=== PATIENT | male | born 1935 | race Caucasian/White ===

== ENCOUNTER 2019-03-22 10:44 | Inpatient (IN) | payer MEDICARE ==
[~2019-03-22] VITALS: Ht 172.7 cm; Wt 118.8 kg
[2019-03-22 11:42] LABS: BASOPHILS % (AUTO) 0.4 % (0.0-5.0); EOSINOPHILS % (AUTO) 1.7 % (0.0-8.0); HEMATOCRIT 49.5 % (42-54); LYMPHOCYTES % (AUTO) 18.8 % (21.0-51.0); MEAN CORPUSCULAR HEMOGLOBIN 30.5 pg (27.0-33.0); MEAN CORPUSCULAR HGB CONC 34.6 g/dL (32.0-36.0); MEAN CORPUSCULAR VOLUME 88.2 fL (79-99); MONOCYTES % (AUTO) 8.6 % (3.0-13.0); NEUTROPHILS % (AUTO) 70.5 % (40.0-77.0); NUCLEATED RED BLOOD CELLS 0.1 % (0.0-0.19); PLATELET COUNT (AUTO) 270 K/uL (130-400); RED BLOOD CELL COUNT(AUTO) 5.62 MIL/uL (4.50-6.20); RED CELL DISTRIBUTION WIDTH 13.3 % (11.0-15.5); WHITE BLOOD COUNT (AUTO) 12.1 K/uL (4.8-10.8)
[2019-03-22 11:52] LABS: CREATININE 1.1 mg/dL (0.5-1.5); POTASSIUM 3.7 mmol/L (3.5-5.1)
[2019-03-22 11:57] LABS: ALBUMIN 3.5 g/dL (3.5-5.0); BILIRUBIN,TOTAL 0.8 mg/dL (0.2-1.0); CRP QUANTITATIVE 22.8 mg/L (0.00-9.0); INR 1.02 (0.85-1.15); PARTIAL THROMBOPLASTIN TIME 30.3 SEC (26.3-35.5); PROTHROMBIN TIME 10.7 SEC (9.6-11.6); TOTAL PROTEIN, SERUM 7.7 g/dL (6.0-8.3)
[2019-03-22 12:11] LABS: B-TYPE NATRIURETIC PEPTIDE 37 pg/mL (0-100)
[2019-03-22] MEDS ORDERED: MORPHINE SULFATE 4 MG/1ML SYG IV PRN (14:15)
[2019-03-22] MEDS ORDERED: LACTULOSE 20 GM/30 ML UDCUP PO PRN (14:15)
[2019-03-22] MEDS ORDERED: ONDANSETRON HCL 4 MG/2 ML VIAL IV PRN (14:15)
[2019-03-22] MEDS ORDERED: HYDRALAZINE HCL 20 MG/ML VIAL IV PRN (14:15)
[2019-03-22] MEDS ORDERED: MORPHINE SULFATE 2 MG/ML 1ML SYG IV PRN (14:15)
[2019-03-22] MEDS ORDERED: ACETAMINOPHEN 325 MG TAB PO PRN ×2 (14:15)
[2019-03-22 14:16] LABS: APPEARANCE,URINE Clear (CLEAR); BILIRUBIN,URINE Negative (NEGATIVE); COLOR,URINE Dark Yellow (YELLOW); GLUCOSE, URINE (UA) >=1000 mg/dL (NEGATIVE); KETONES,URINE Negative (NEGATIVE); LEUKOCYTE ESTERASE ,URINE Moderate (NEGATIVE); NITRATE,URINE Positive (NEGATIVE); OCCULT BLOOD,URINE Trace (NEGATIVE); PROTEIN,URINE Negative (NEGATIVE)
[2019-03-22 14:28] LABS: BACTERIA,URINE Many /HPF (None Seen); MUCUS,URINE Few LPF (None Seen); RBC,URINE 0-1 /HPF (0-1); SQUAMOUS EPITHELIAL CELL,UR Rare /HPF (0-2); WBC,URINE >100 /HPF (0-1)
[2019-03-22 20:54] LABS: CREATINE KINASE, TOTAL 29 U/L (21-232); MYOGLOBIN 2 ng/mL (10-92)
[2019-03-22] MEDS ORDERED: DEXAMETHASONE SOD PHOSPHATE 4 MG/ML 1ML VIAL ONE (22:42)
[2019-03-22] MEDS ORDERED: ZOSYN 3.375GM+NS 50ML 50 ML IV ONE (22:43)
[2019-03-22] MEDS ORDERED: BACLOFEN 10 MG TABLET PO ONE (22:43)
[2019-03-22] MEDS ORDERED: PREGABALIN 25 MG CAP ONE (22:44)
[2019-03-22] MEDS ORDERED: FAMOTIDINE/PF 20 MG/2 ML VIAL IV ONE (22:44)
[2019-03-23] MEDS: INSULIN HUMULIN R 100 UNIT/ML 3ML SQ SCH ×4 (07:30→21:18)
[2019-03-23] MEDS ORDERED: ZOSYN 3.375GM+NS 50ML 50 ML IV ONE (07:58)
[2019-03-23] MEDS ORDERED: DEXAMETHASONE SOD PHOSPHATE 4 MG/ML 1ML VIAL ONE (08:04)
[2019-03-23] MEDS ORDERED: BACLOFEN 10 MG TABLET PO ONE (08:05)
[2019-03-23] MEDS ORDERED: PREGABALIN 25 MG CAP ONE (08:06)
[2019-03-23] MEDS ORDERED: FAMOTIDINE/PF 20 MG/2 ML VIAL IV ONE (08:06)
[2019-03-23] MEDS ORDERED: INSULIN HUMULIN R 100 UNIT/ML 3ML ONE (08:42)
[2019-03-23] MEDS ORDERED: LIDOCAINE 5% TOPICAL PATCH TP SCH (09:00)
[2019-03-23] MEDS: FAMOTIDINE/PF 20 MG/2 ML VIAL IV SCH ×2 (09:00→21:12)
[2019-03-23] MEDS: PREGABALIN 75 MG CAPSULE PO SCH ×2 (09:00→13:15)
[2019-03-23] MEDS: BACLOFEN 10 MG TABLET PO SCH ×3 (09:00→21:12)
[2019-03-23] MEDS: DEXAMETHASONE SOD PHOSPHATE 4 MG/ML 1ML VIAL IVP SCH ×3 (09:00→21:12)
[2019-03-23] MEDS: ZOSYN 3.375GM+NS 50ML 50 ML IV SCH ×2 (10:30→17:02)
[2019-03-23] MEDS ORDERED: IOHEXOL-350 50ML VIAL IV ONE (10:54)
--- NOTE | 2019-03-23 10:54 | NUR ---
MICHELLE Tyler met with pt and daughter. Pt liveswith [place] [phone]. Pt states he is independent of ADLS, uses walker, home is handicapped equipped, toilets and grab bars, no in home care services. Denies dc needs plan is home Addendum: 03/23/19 at 1056 by REMBERTO GEORGE SS Amended: Links added.
[2019-03-23 11:56] VITALS: BP 149/69
[2019-03-23 11:56] LABS: BASOPHILS % (AUTO) 0.5 % (0.0-5.0); HEMATOCRIT 49.1 % (42-54); LYMPHOCYTES % (AUTO) 11.2 % (21.0-51.0); MEAN CORPUSCULAR HEMOGLOBIN 30.5 pg (27.0-33.0); MEAN CORPUSCULAR HGB CONC 34.9 g/dL (32.0-36.0); MEAN CORPUSCULAR VOLUME 87.3 fL (79-99); MONOCYTES % (AUTO) 2.1 % (3.0-13.0); NEUTROPHILS % (AUTO) 86.2 % (40.0-77.0); PLATELET COUNT (AUTO) 264 K/uL (130-400); RED BLOOD CELL COUNT(AUTO) 5.63 MIL/uL (4.50-6.20); RED CELL DISTRIBUTION WIDTH 12.9 % (11.0-15.5); WHITE BLOOD COUNT (AUTO) 9.5 K/uL (4.8-10.8)
[2019-03-23 12:08] LABS: POTASSIUM 3.9 mmol/L (3.5-5.1)
[2019-03-23] MEDS ORDERED: ATEN50TA PO (12:19)
[2019-03-23] MEDS ORDERED: HYDR12.54 PO (12:19)
[2019-03-23] MEDS ORDERED: METF-444 PO (12:19)
[2019-03-23] MEDS ORDERED: RANI150T7 PO (12:19)
[2019-03-23 16:14] VITALS: BP 158/78
[2019-03-23 19:16] VITALS: BP 158/80
[2019-03-23] MEDS ORDERED: PREGABALIN 25 MG CAP PO SCH (21:00)
--- NOTE | 2019-03-23 22:20 | NUR ---
NOTE SQL SERVER DEVELOPER CONTACTED ME REGARDING HER OBSERVING PATIENT CLOSING THE DOOR IN HIS ROOM (IT HAD BEEN OPEN SLIGHTLY) SHE WENT IN TO CHECK ON HIM, BUT HE WAS PUSHING DOOR TO STAY CLOSED AND WOULD NOT OPEN DOOR. WE BOTH CONTINUED TO TRY TO SPEAK WITH HIM. HE OPENED THE DOOR SLIGHTLY ABOUT 3 TIMES BUT WOULD SHUT IT. HE DID NOT RESPOND TO ANY QUESTIONS ASKED REGARDING HIM NEEDING HELP. WE COULD HEAR THAT HE IS WALKING AROUND IN ROOM, NOISE OF KEYS BEING HANDLED, AND NOTICED HE HAD TAKEN HIS GOWN ON THE OCCASIONS HE OPENED DOOR TO LOOK OUT. CONTACTED ETCHER APPRENTICE SARAH PARHAM RN TO INFORMED OF SITUATION ABOVE AND THAT HIS MENTAL STATE AND BEHAVIOR WAS NOT THIS LAST TIME CHECKED ON ABOUT AN HOUR PRIOR. ADVISED TO CONTACT SECURITY AND I DID AND INFORMED OF ABOVE INFORMATION WELL.
--- NOTE | 2019-03-23 22:35 | NUR ---
NOTE SPOKE WITH Javier ESQUIVELP (ONCALL FOR HOSPITALIST) GAVE BRIEF REPORT OF PATIENT AND PRESENT SITUATION. NO ORDERS OTHER THAN TO WORK WITH SECURITY TO GET HIM TO OPEN DOOR.
--- NOTE | 2019-03-23 22:43 | NUR ---
NOTE SECUTITY OFFICERS KEPT TRYING TO TALK TO PATIENT TO OPEN DOOR, I CONTACTED PATIENT'S SPOUSE WITH NUMBER LISTED ON CHART. SHE SAYS SHE IS NOT ABLE TO COME SHE DOES NOT HAVE A VEHICLE, BUT WILL CALL HER DAUGHTER TO COME. SHARED THIS INFORMATION WITH SECURITY GUARDS WHO BY NOW HAVE MANAGED TO GET DOOR OPEN AND PATIENT WAS SAYING HE IS AT A HOTEL AND HAS PAID FOR HIS ROOM AND TO NOT BE BOTHERED BY US.
--- NOTE | 2019-03-23 22:48 | NUR ---
NOTE CONTACTED AGAIN Javier LUNDBERG MEDICAL RECORD LIBRARIANS TEACHER TO NOTIFY OF WHAT PATIENT IS SAYING. HE APEARS TO KNOW WHO HE IS AND THAT [facility], BUT DOES NOT ACCEPT WHEN TOLD THAT HE IS IN HOSPITAL. RECEIVED ORDERS TO ADMINISTER ATIVAN 1MG IV IF NEEDED TO HELP CONTROL PATIENT'S AGITATION. PATIENT MEAN WHILE, GOT DRESSED AND GOT HIS BELONGINGS AND SAYS HE IS LEAVING AND STARTED WALKING TOWARDS ELEVATORS WITH SECURITY OFFICERS FOLLOWING HIM.
--- NOTE | 2019-03-23 23:13 | NUR ---
NOTE LISW IS AWARE OF SITUATION. Javier LUNDBERG AD SETTER ALSO INFORMED PATIENT WALKED OUT. CHECKED ROOM AND FOUND THE MAGAÑA CATHETER CUT IN TWO PIECES. THE TIP AND THE REST ATTACKED TO THE DRAINAGE BAG. ALSO FOUND IV CATHETER THAT PATIENT REMOVED AND WAS FOUND ON THE BED LINEN. IN CONFERING WITH ALEXANDER (ONE OF THE SECURITY GUARDS) SHE SAYS SHE CONTACTED THE POLICE DEPARTMENT TO GO CHECK ON HIM AT HOME HE DID GET INTO THIS VEHICLE AND DROVE AWAY. SHE SAYS HE SPOKE WITH DAUGHTER WHEN SHE ARRIVED AND INFORMED HER SHE HAD JUST LEFT. WITNESSED THAT SHE ALSO RECEIVED A PHONE CALL WHERE SHE SPOKE WITH A PERSON THAT IDENTIFIED A FAMILY MEMBER OF PATIENT AND TOLD HER HE ARRIVED AT HOME. SHE NOTIFIED THAT PERSON THAT SHE ASKED THE POLICE DEPARTMENT TO CHECK IN ON HIM AT HIS ADDRESS TO MAKE SURE HE GOT THERE SAFE.
== END 2019-03-23 22:55 | disposition left against medical advice (07) | DRG 690 ==
LOC: EDH 10:44 → EDHIP 14:11 → 4AH 14:12
PROVIDERS: ADMIT Internal Medicine; ATTEND Internal Medicine
DX: N39.0 Urinary tract infection, site not specified (principal); M48.061 Spinal stenosis, lumbar region without neurogenic claudication; E11.42 Type 2 diabetes mellitus with diabetic polyneuropathy; G89.29 Other chronic pain; I10 Essential (primary) hypertension; M47.816 Spondylosis without myelopathy or radiculopathy, lumbar region; Z53.21 Procedure and treatment not carried out due to patient leaving prior to being seen by health care provider; E83.52 Hypercalcemia; Z87.440 Personal history of urinary (tract) infections; Z87.891 Personal history of nicotine dependence
CPT/HCPCS: 36415; 70470; 71045; 72131; 72141; 72146; 72148; 80048; 80053; 81001; 82550; 82948; 83874; 83880; 84484; 85025; 85610; 85651; 85730; 86140; 93005; 93925; 93970; G0378; J1100; J1815; J2543; J3490; Q9967

== ENCOUNTER 2019-03-24 15:23 | Emergency (ER) | payer MEDICARE ==
[~2019-03-24 15:23] MED LIST: ATEN50TA PO; HYDR12.54 PO; METF-444 PO; RANI150T7 PO
[2019-03-24 16:05] LABS: EOSINOPHILS % (AUTO) 0.1 % (0.0-8.0); HEMATOCRIT 47.2 % (42-54); MEAN CORPUSCULAR HEMOGLOBIN 30.2 pg (27.0-33.0); MEAN CORPUSCULAR HGB CONC 34.1 g/dL (32.0-36.0); MEAN CORPUSCULAR VOLUME 88.7 fL (79-99); MONOCYTES % (AUTO) 8.1 % (3.0-13.0); NEUTROPHILS % (AUTO) 76.8 % (40.0-77.0); PLATELET COUNT (AUTO) 277 K/uL (130-400); RED BLOOD CELL COUNT(AUTO) 5.32 MIL/uL (4.50-6.20); RED CELL DISTRIBUTION WIDTH 13.5 % (11.0-15.5); WHITE BLOOD COUNT (AUTO) 16.1 K/uL (4.8-10.8)
[2019-03-24 16:20] LABS: CREATININE 1.1 mg/dL (0.5-1.5); POTASSIUM 3.4 mmol/L (3.5-5.1)
[2019-03-24 17:00] LABS: APPEARANCE,URINE SL CLOUDY (CLEAR); BILIRUBIN,URINE NEGATIVE (NEGATIVE); COLOR,URINE YELLOW (YELLOW); GLUCOSE, URINE (UA) >=1000 mg/dL (NEGATIVE); KETONES,URINE NEGATIVE (NEGATIVE); LEUKOCYTE ESTERASE ,URINE SMALL (NEGATIVE); NITRATE,URINE NEGATIVE (NEGATIVE); OCCULT BLOOD,URINE MODERATE (NEGATIVE); PROTEIN,URINE TRACE mg/dL (NEGATIVE); UROBILINOGEN,URINE 0.2 mg/dL (0.2-1.0)
[2019-03-24 17:09] LABS: BACTERIA,URINE Few /HPF (None Seen)
[2019-03-24 17:10] LABS: MUCUS,URINE Rare LPF (None Seen); SQUAMOUS EPITHELIAL CELL,UR Few /HPF (0-2)
[2019-03-24] MEDS ORDERED: CEFTRIAXONE SODIUM 1 GM ONE (17:23)
== END 2019-03-24 17:58 | disposition home or self-care (01) ==
LOC: EDH 15:23
DX: N39.0 Urinary tract infection, site not specified (principal); E11.65 Type 2 diabetes mellitus with hyperglycemia; I10 Essential (primary) hypertension; Z98.890 Other specified postprocedural states
CPT/HCPCS: 36415; 71045; 80048; 81001; 82948; 85025; 87088; 87804 ×2; 96374; 99285; J0696

== ENCOUNTER 2019-08-20 18:55 | Emergency (ER) | payer MEDICARE ==
[2019-08-20 20:05] LABS: BASOPHILS % (AUTO) 2.4 % (0.0-5.0); EOSINOPHILS % (AUTO) 4.4 % (0.0-8.0); HEMATOCRIT 42.6 % (42-54); LYMPHOCYTES % (AUTO) 25.8 % (21.0-51.0); MEAN CORPUSCULAR HEMOGLOBIN 30.2 pg (27.0-33.0); MEAN CORPUSCULAR HGB CONC 34.6 g/dL (32.0-36.0); MEAN CORPUSCULAR VOLUME 87.1 fL (79-99); MONOCYTES % (AUTO) 8.7 % (3.0-13.0); NEUTROPHILS % (AUTO) 58.7 % (40.0-77.0); PLATELET COUNT (AUTO) 311 K/uL (130-400); RED BLOOD CELL COUNT(AUTO) 4.89 MIL/uL (4.50-6.20); RED CELL DISTRIBUTION WIDTH 13.3 % (11.0-15.5); WHITE BLOOD COUNT (AUTO) 10.5 K/uL (4.8-10.8)
[2019-08-20 20:14] LABS: APPEARANCE,URINE TURBID (CLEAR); BILIRUBIN,URINE LARGE (NEGATIVE); COLOR,URINE BROWN (YELLOW); GLUCOSE, URINE (UA) NEGATIVE (NEGATIVE); KETONES,URINE 15 mg/dL (NEGATIVE); LEUKOCYTE ESTERASE ,URINE MODERATE (NEGATIVE); NITRATE,URINE POSITIVE (NEGATIVE); OCCULT BLOOD,URINE LARGE (NEGATIVE); PROTEIN,URINE >=300 mg/dL (NEGATIVE); UROBILINOGEN,URINE >=8.0 mg/dL (0.2-1.0)
[2019-08-20 20:22] LABS: BACTERIA,URINE Many /HPF (None Seen); RBC,URINE 51-100 /HPF (0-1); SQUAMOUS EPITHELIAL CELL,UR 0-2 /HPF (0-2)
[2019-08-20 20:23] LABS: MUCUS,URINE None Seen LPF (None Seen)
[2019-08-20 20:24] LABS: POTASSIUM 3.5 mmol/L (3.5-5.1)
[2019-08-20 20:25] LABS: INR 1.01 (0.85-1.15); PARTIAL THROMBOPLASTIN TIME 29.1 SEC (26.3-35.5); PROTHROMBIN TIME 10.6 SEC (9.6-11.6)
[2019-08-20 20:26] LABS: ALBUMIN 3.3 g/dL (3.5-5.0); BILIRUBIN,TOTAL 0.3 mg/dL (0.2-1.0); TOTAL PROTEIN, SERUM 7.5 g/dL (6.0-8.3)
[2019-08-20] MEDS ORDERED: CEFTRIAXONE SODIUM 1 GM ONE (20:38)
== END 2019-08-20 21:25 | disposition home or self-care (01) ==
LOC: EDH 18:55
DX: N39.0 Urinary tract infection, site not specified (principal); R31.9 Hematuria, unspecified; I10 Essential (primary) hypertension; E11.9 Type 2 diabetes mellitus without complications; Z87.891 Personal history of nicotine dependence
CPT/HCPCS: 36415; 80053; 81001; 85025; 85610; 85730; 87077; 87088; 87186; 96374; 99284; J0696

== ENCOUNTER → 2019-09-06 | Outpatient (CLI) | payer MEDICARE ==
[~2019-09-06] VITALS: Ht 174 cm; Wt 104.8 kg
[~2019-09-06] MED LIST changes: +ASPI-1181 PO; +CEFTRIAXONE SODIUM 1 GM IVP SCH; +CEPH500C2 PO; +GENTAMICIN SULFATE 360 MG in SODIUM CHLORIDE 0.9% 100 ML IV SCH; +TAMS-1 PO; +TYLENOL PO
[2019-09-06 12:09] LABS: BASOPHILS % (AUTO) 0.9 % (0.0-5.0); EOSINOPHILS % (AUTO) 1.6 % (0.0-8.0); HEMATOCRIT 45.3 % (42-54); LYMPHOCYTES % (AUTO) 18.3 % (21.0-51.0); MEAN CORPUSCULAR HEMOGLOBIN 28.7 pg (27.0-33.0); MEAN CORPUSCULAR HGB CONC 33.3 g/dL (32.0-36.0); MEAN CORPUSCULAR VOLUME 86.4 fL (79-99); NEUTROPHILS % (AUTO) 71.2 % (40.0-77.0); PLATELET COUNT (AUTO) 508 K/uL (130-400); RED BLOOD CELL COUNT(AUTO) 5.24 MIL/uL (4.50-6.20); RED CELL DISTRIBUTION WIDTH 13.3 % (11.0-15.5); WHITE BLOOD COUNT (AUTO) 13.3 K/uL (4.8-10.8)
[2019-09-06 12:28] LABS: CREATININE 0.9 mg/dL (0.5-1.5); POTASSIUM 4.2 mmol/L (3.5-5.1)
[2019-09-06 12:37] LABS: APPEARANCE,URINE Turbid (CLEAR); BILIRUBIN,URINE Negative (NEGATIVE); COLOR,URINE Yellow (YELLOW); GLUCOSE, URINE (UA) Negative (NEGATIVE); KETONES,URINE Negative (NEGATIVE); LEUKOCYTE ESTERASE ,URINE Moderate (NEGATIVE); NITRATE,URINE Positive (NEGATIVE); OCCULT BLOOD,URINE Large (NEGATIVE); PH,URINE >=9.0 (5.0-8.0); PROTEIN,URINE POS 1+ mg/dL (NEGATIVE)
--- NOTE | 2019-09-06 12:39 | NUR ---
ABNORMAL EKG ABNORMAL EKG REPORTED TO DR. COSTA. NO FURTHER ORDERS GIVEN, MAY PROCEED WITH PLANNED PROCEDURE.
[2019-09-06 12:51] LABS: INR 1.04 (0.85-1.15); PARTIAL THROMBOPLASTIN TIME 30.8 SEC (26.3-35.5); PROTHROMBIN TIME 10.9 SEC (9.6-11.6)
[2019-09-06 13:01] LABS: AMORPHOUS SEDIMENT,UR Moderate /LPF (None Seen); BACTERIA,URINE Many /HPF (None Seen); RBC,URINE TNTC /HPF (0-1); SQUAMOUS EPITHELIAL CELL,UR Rare /HPF (0-2); WBC,URINE 26-50 /HPF (0-1)
--- NOTE | 2019-09-08 14:57 | NUR ---
Faxed over labs to Doctor Fingers office spoke to Shasha from office, send over ua results and ua xc, and faxed over cbc, Pending call back and new orders.
--- NOTE | 2019-09-08 16:08 | NUR ---
LABS PER DR FERNANDO CANCEL SURGERY DUE TO ABNORMAL URINE AND WBC ELEVATED, PREET OR OLIVE PACKER AWARE
== END ==
LOC: DAH 10:00 → EDSTATUS 10-04 10:00
PROVIDERS: ATTEND Urology
DX: Z01.818 Encounter for other preprocedural examination (principal); N40.1 Benign prostatic hyperplasia with lower urinary tract symptoms; R33.8 Other retention of urine; Z79.899 Other long term (current) drug therapy; Z79.01 Long term (current) use of anticoagulants; Z79.84 Long term (current) use of oral hypoglycemic drugs; Z87.891 Personal history of nicotine dependence; Z82.49 Family history of ischemic heart disease and other diseases of the circulatory system; Z82.5 Family history of asthma and other chronic lower respiratory diseases
CPT/HCPCS: 36415; 71045; 80048; 81001; 85025; 85610; 85730; 87077; 87088; 87186; 93005; A6260

== ENCOUNTER 2019-10-07 07:00 | Day surgery (SDC) | payer MEDICARE ==
[2019-10-04 10:35] LABS: BASOPHILS % (AUTO) 0.4 % (0.0-5.0); EOSINOPHILS % (AUTO) 1.3 % (0.0-8.0); HEMATOCRIT 43.6 % (42-54); LYMPHOCYTES % (AUTO) 11.3 % (21.0-51.0); MEAN CORPUSCULAR HEMOGLOBIN 29.5 pg (27.0-33.0); MEAN CORPUSCULAR HGB CONC 33.8 g/dL (32.0-36.0); MEAN CORPUSCULAR VOLUME 87.3 fL (79-99); MONOCYTES % (AUTO) 2.7 % (3.0-13.0); NEUTROPHILS % (AUTO) 84.3 % (40.0-77.0); PLATELET COUNT (AUTO) 311 K/uL (130-400); RED BLOOD CELL COUNT(AUTO) 4.99 MIL/uL (4.50-6.20); WHITE BLOOD COUNT (AUTO) 13.6 K/uL (4.8-10.8)
[2019-10-04 11:08] VITALS: BP 146/59
[2019-10-04 12:34] LABS: APPEARANCE,URINE Cloudy (CLEAR); BILIRUBIN,URINE Negative (NEGATIVE); COLOR,URINE Yellow (YELLOW); GLUCOSE, URINE (UA) 250 mg/dL (NEGATIVE); KETONES,URINE Negative (NEGATIVE); LEUKOCYTE ESTERASE ,URINE Large (NEGATIVE); NITRATE,URINE Negative (NEGATIVE); OCCULT BLOOD,URINE Moderate (NEGATIVE); PROTEIN,URINE Negative (NEGATIVE); UROBILINOGEN,URINE 0.2 mg/dL (0.2-1.0)
[2019-10-04 12:36] LABS: BACTERIA,URINE Few /HPF (None Seen); RBC,URINE 0-1 /HPF (0-1)
[2019-10-04 12:37] LABS: SQUAMOUS EPITHELIAL CELL,UR Few /HPF (0-2)
--- NOTE | 2019-10-06 18:30 | NUR ---
REPORTED ABNORMAL UA LABS TO DR. FERNANDO, NO NEW ORDERS, OK TO PROCEED.
[2019-10-07] VITALS (17 sets, daily range): BP systolic 104–135; BP diastolic 51–63
[~2019-10-07] VITALS: Ht 172.7 cm; Wt 104.6 kg
[~2019-10-07 07:00] MED LIST changes: -ASPI-1181 PO; -CEFTRIAXONE SODIUM 1 GM IVP SCH; -CEPH500C2 PO; +FURO20TA4 PO; +GENTAMICIN SULFATE 320 MG in SODIUM CHLORIDE 0.9% 100 ML IV SCH; -GENTAMICIN SULFATE 360 MG in SODIUM CHLORIDE 0.9% 100 ML IV SCH; +METH2.5T6 PO; +METH4TAB15 PO; +POTA20PI IV; -RANI150T7 PO
[2019-10-07] MEDS ORDERED: SODIUM CHLORIDE 0.9% 1000ML 1,000 ML IV ONE (08:44)
[2019-10-07] MEDS: ZOSYN 3.375GM+NS 50ML 50 ML IV SCH ×2 (09:00→10:15)
[2019-10-07] MEDS ORDERED: FENTANYL CITRATE PF 50 MCG/1 ML 2ML VIAL ONE (09:56)
[2019-10-07] MEDS ORDERED: PROPOFOL 10 MG/ML 20ML VIAL IV ONE (09:56)
[2019-10-07] MEDS ORDERED: LIDOCAINE PF 2% 5ML ABBOJECT ONE (09:56)
[2019-10-07] MEDS ORDERED: ROCURONIUM 10MG/1ML SYR 10 MG/ML ML ONE (09:56)
[2019-10-07] MEDS ORDERED: SUCCINYLCHOLINE 200MG/10ML SYR ONE (09:56)
[2019-10-07] MEDS ORDERED: EPHEDRINE SULFATE 50 MG/ML AMPULE ONE (10:21)
[2019-10-07] MEDS ORDERED: GLYCOPYRROLATE 1 MG/5 ML SYRINGE ONE (11:22)
[2019-10-07] MEDS ORDERED: NEOSTIGMINE 5MG/5ML SYR IV ONE (11:22)
== END 2019-10-07 13:33 | disposition home or self-care (01) ==
LOC: DAH 07:00
PROVIDERS: ATTEND Urology
DX: N40.1 Benign prostatic hyperplasia with lower urinary tract symptoms (principal); R33.8 Other retention of urine; E11.9 Type 2 diabetes mellitus without complications; I10 Essential (primary) hypertension; Z98.890 Other specified postprocedural states; M19.90 Unspecified osteoarthritis, unspecified site; Z98.41 Cataract extraction status, right eye; Z98.42 Cataract extraction status, left eye; Z79.84 Long term (current) use of oral hypoglycemic drugs; Z79.899 Other long term (current) drug therapy; Z82.49 Family history of ischemic heart disease and other diseases of the circulatory system; Z82.5 Family history of asthma and other chronic lower respiratory diseases; Z82.3 Family history of stroke
CPT/HCPCS: 36415; 52601; 55700; 76942; 76998; 80048; 81001; 82948 ×2; 85025; 87077; 87088; 87186; 88305; 96365; A4215 ×2; A4221; A4222; A4223 ×2; A4354; A4358; A4663; A6260; C1758; J0330; J1580; J2001; J2543; J2704; J2710; J3010; J3490 ×2; J7030; J7120

== ENCOUNTER 2019-10-12 05:18 | Emergency (ER) | payer MEDICARE ==
[~2019-10-12 05:18] MED LIST changes: -GENTAMICIN SULFATE 320 MG in SODIUM CHLORIDE 0.9% 100 ML IV SCH
[2019-10-12 06:06] LABS: APPEARANCE,URINE Turbid (CLEAR); BILIRUBIN,URINE Negative (NEGATIVE); COLOR,URINE Yellow (YELLOW); GLUCOSE, URINE (UA) 250 mg/dL (NEGATIVE); KETONES,URINE Negative (NEGATIVE); LEUKOCYTE ESTERASE ,URINE Large (NEGATIVE); NITRATE,URINE Negative (NEGATIVE); OCCULT BLOOD,URINE Large (NEGATIVE); PROTEIN,URINE POS 1+ mg/dL (NEGATIVE); UROBILINOGEN,URINE 0.2 mg/dL (0.2-1.0)
[2019-10-12 06:26] LABS: CREATININE 0.7 mg/dL (0.5-1.5); POTASSIUM 3.5 mmol/L (3.5-5.1)
[2019-10-12 07:11] LABS: RBC,URINE 51-100 /HPF (0-1)
[2019-10-12 07:12] LABS: BACTERIA,URINE Rare /HPF (None Seen); SQUAMOUS EPITHELIAL CELL,UR Rare /HPF (0-2); YEAST,URINE BUDDING Many /HPF (None Seen)
[2019-10-12 07:18] LABS: BASOPHILS % (AUTO) 0.6 % (0.0-5.0); EOSINOPHILS % (AUTO) 2.7 % (0.0-8.0); HEMATOCRIT 43.6 % (42-54); LYMPHOCYTES % (AUTO) 24.1 % (21.0-51.0); MEAN CORPUSCULAR HEMOGLOBIN 29.6 pg (27.0-33.0); MEAN CORPUSCULAR HGB CONC 33.8 g/dL (32.0-36.0); MEAN CORPUSCULAR VOLUME 87.8 fL (79-99); MONOCYTES % (AUTO) 7.9 % (3.0-13.0); NEUTROPHILS % (AUTO) 64.7 % (40.0-77.0); NUCLEATED RED BLOOD CELLS 0.1 % (0.0-0.19); PLATELET COUNT (AUTO) 232 K/uL (130-400); RED BLOOD CELL COUNT(AUTO) 4.97 MIL/uL (4.50-6.20); RED CELL DISTRIBUTION WIDTH 14.8 % (11.0-15.5); WHITE BLOOD COUNT (AUTO) 14.7 K/uL (4.8-10.8)
[2019-10-12] MEDS ORDERED: CEFTRIAXONE SODIUM 1 GM ONE (07:28)
[2019-10-12] MEDS ORDERED: LIDOCAINE HCL 1% 20 ML VIAL ONE (07:28)
[2019-10-12] MEDS ORDERED: FLUCONAZOLE 100 MG TAB ONE ×2 (07:30→07:41)
== END 2019-10-12 07:58 | disposition home or self-care (01) ==
LOC: EDH 05:18
DX: R33.9 Retention of urine, unspecified (principal); N39.0 Urinary tract infection, site not specified; E11.9 Type 2 diabetes mellitus without complications; I10 Essential (primary) hypertension
CPT/HCPCS: 36415; 51702; 80048; 81001; 85025; 87088; 96372; 99284; J0696

== ENCOUNTER → 2019-11-22 | Outpatient (CLI) | payer MEDICARE | END | disposition home or self-care (01) | LOC: OIH 09:07 | PROVIDERS: ATTEND Internal Medicine | DX: M06.4 Inflammatory polyarthropathy (principal) | CPT/HCPCS: 73130; 73630 ==

== ENCOUNTER 2020-10-21 07:31 | Emergency (ER) | payer MEDICARE ==
[2020-10-21] MEDS ORDERED: MAGNESIUM CITRATE 296 ML SOLUTION ONE (07:57)
== END 2020-10-21 10:45 | disposition home or self-care (01) ==
LOC: EDH 07:31
DX: K59.00 Constipation, unspecified (principal); I10 Essential (primary) hypertension; E66.01 Morbid (severe) obesity due to excess calories; Z98.890 Other specified postprocedural states; E11.9 Type 2 diabetes mellitus without complications; Z79.899 Other long term (current) drug therapy
CPT/HCPCS: 74018

== ENCOUNTER 2025-03-21 08:16 | Emergency (ER) | payer MEDICARE ==
[~2025-03-21] VITALS: Ht 182.9 cm; Wt 113.4 kg
[~2025-03-21 08:16] MED LIST changes: +CETI10TA57 PO; +CHOL125C7 PO; +CLIN-141 PO; +EPIN0.3P19 IJ; -FURO20TA4 PO; -HYDR12.54 PO; +HYDR200T75 PO; +LEVO-70 PO; +LINA5TAB PO; -METH2.5T6 PO; -METH4TAB15 PO; +MONT-39 PO; -POTA20PI IV; +PRED5TAB PO; +ROSU5TAB51 PO; -TAMS-1 PO; +TAMS-55 PO; -TYLENOL PO
[2025-03-21] MEDS: ORPHENADRINE 60MG/2ML IM ONE (08:49)
[2025-03-21] MEDS: TRIAMCINOLONE ACETONIDE 40 MG/ML 1ML VIAL IM ONE (08:49)
--- NOTE | 2025-03-21 09:30 | NUR ---
PT SELF CATHETERIZES NEEDED. PROVIDED HIM WITH A PACK OF STERILE STRAIGHT CATH,STERILE GLOVES, LUBRICANT AND URINAL.
--- NOTE | 2025-03-21 10:07 | ERN ---
General Chief Complaint: Hip Pain/Injury Stated Complaint: R HIP PAIN RADIATING TO LEG Time Seen by MD: 08:19 Source: patient History of Present Illness Initial Comments THIS IS A AN 89-YEAR-OLD MALE COMING IN WITH A RIGHT HIP PAIN. PATIENT STATES THAT HE WAS NOT DONE ANYTHING PHYSICAL AND HAS BEEN HAVING PAIN IN THE RIGHT HIP RADIATING DOWN THE RIGHT LEG. HE ALSO STATES THAT HE WAS TOLD THAT HE HAS BAD ARTHRITIS OF THE HIP. Allergies: Coded Allergies: No Known Allergies (Verified Allergy, Unknown, 03/22/19) Home Meds Active Scripts Clindamycin HCl (Clindamycin HCl) 300 Mg Capsule, 300 MG PO BID, #28 CAP 0 Refills Prov:FEDE PIRES MD 03/07/24 Levofloxacin (Levofloxacin) 500 Mg Tablet, 500 MG PO DAILY, #14 TAB Prov:FEDE PIRES MD 03/07/24 Cholecalciferol (Vitamin D3) (D3-5000) 125 Mcg (5000 Unit) Capsule, 125 MCG PO DAILY, #90 CAP Prov:FEDE PIRES MD 03/05/24 Epinephrine (Epinephrine) 0.3 Mg/0.3 Ml Auto.injct, 0.3 MG IJ AD PRN for ALLERGY, #1 CARTRIDGE Prov:FEDE PIRES MD 03/05/24 Linagliptin (Tradjenta) 5 Mg Tablet, 5 MG PO DAILY, #90 TAB Prov:FEDE PIRES MD 03/05/24 Rosuvastatin Calcium (Rosuvastatin Calcium) 5 Mg Tablet, 5 MG PO DAILY, #90 TAB Prov:FEDE PIRES MD 03/05/24 Prednisone (Prednisone) 5 Mg Tablet, 5 MG PO DAILY, #90 TAB Prov:FEDE PIRES MD 03/05/24 Montelukast Sodium (Montelukast Sodium) 10 Mg Tablet, 10 MG PO DAILY, #90 TAB Prov:FEDE PIRES MD 03/05/24 Metformin HCl (Metformin HCl) 500 Mg Tablet, 500 MG PO DAILYBKFST, #90 TAB Prov:FEDE PIRES MD 03/05/24 Hydroxychloroquine Sulfate (Hydroxychloroquine Sulfate) 200 Mg Tablet, 200 MG PO DAILY, #90 TAB Prov:FEDE PIRES MD 4/12/24 Cetirizine HCl (Cetirizine HCl) 10 Mg Tablet, 10 MG PO DAILYDINNER, #90 TAB Prov:FEDE PIRES MD 03/05/24 Tamsulosin HCl (Flomax) 0.4 Mg Cap.er.24h, 0.4 MG PO HS, #[address]SULE.[address] Prov:FEDE PIRES MD 03/05/24 Reported Medications Atenolol (Atenolol) 50 Mg Tablet, 50 MG PO BID, TAB 03/23/19 Past Medical History Past Medical History: High Cholesterol, Hypertension, Other Medical History Other: HARD OF HEARING Past Surgical History: Unknown Surgical History Other: RIGHT KNEE REPLACEMENT, LEFT LEG SURGERY ROS Dictation CONSTITUTIONAL: NO CHILLS, NO FEVER, NO WEAKNESS, NO DIAPHORESIS, NO MALAISE. HEAD/FACE: NO SIGNS OF TRAUMA. EENT: NO EYE PAIN, NO BLURRED VISION, NO TEARING, NO DOUBLE VISION, NO EAR P AIN, NO EAR DISCHARGE, NO NOSE PAIN, NO NASAL CONGESTION, NO THROAT PAIN, NO THROAT SWELLING, NO MOUTH PAIN. RESPIRATORY: NO COUGH, NO ORTHOPNEA, NO SOB, NO STRIDOR, NO WHEEZING. CARDIOVASCULAR: NO CHEST PAIN, NO EDEMA, NO PALPITATIONS, NO SYNCOPE. GASTROINTESTINAL/ABDOMINAL: NO ABDOMINAL PAIN, NO CONSTIPATION, NO DIARRHEA, NO NAUSEA, NO VOMITING. GENITOURINARY: NO ABNORMAL DISCHARGE, NO DYSURIA, NO FREQUENT URINATION, NO HEMATURIA. NO COMPLAINTS OF PAIN IN THE GENITALS. MUSCULOSKELETAL: NO BACK PAIN, NO GOUT, JOINT PAIN, NO JOINT SWELLING, MUSCLE PAIN, NO MUSCLE STIFFNESS, NO NECK PAIN. INTEGUMENTARY: NO CHANGE IN COLOR, NO CHANGE IN HAIR/NAILS, NO DRYNESS, NO LESION, NO LUMPS, NO RASH. NEUROLOGICAL/PSYCH: NO ANXIETY, NOT DEPRESSED, NO EMOTIONAL PROBLEM, NO HEADACHE, NO NUMBNESS, NO PRE-EXISTING DEFICIT, NO HISTORY OF SEIZURES, NO TREMORS, NO WEAKNESS. HEMATOLOGIC/LYMPHATIC: NOT ANEMIC, NO HISTORY OF BLOOD CLOTS, NO APPARENT BLEEDING, NO BRUISING, GLANDS NOT SWOLLEN. ALL SYSTEMS NEGATIVE, EXCEPT NOTED. Physical Exam Physical Exam Dictation VITAL SIGNS: REVIEWED. GENERAL APPEARANCE: ALERT, ORIENTED X3, NO ACUTE DISTRESS, OBESE. HEAD AND FACE: NON-TRAUMATIC. EYES: PERRL, PINK CONJUNCTIVAS, EYELID NO TRAUMA, ANTERIOR CHAMBER CLEAR. EARS: PINNAS INTACT AND NO SIGNS OF TRAUMA OR ERYTHEMA. EAR CANALS CLEAR AND NO DISCHARGE. TMS NO ERYTHEMA. NOSE: NO DISCHARGE, NO BLEEDING. OROPHARYNX: MOUTH NORMAL, TEETH NO CARIES, TONGUE PINK. PHARYNX CLEAR, NO E RYTHEMA. TONSILS NO EXUDATES, NO ABSCESSES NOTED. MUCOUS MEMBRANE MOIST. NECK: SUPPLE, NON-TENDER, NO THYROMEGALY, NO MASSES, NO JVD, NO BRUITS. BREAST: DEFERRED. CHEST: NO TENDERNESS, NO CREPITUS, NO PARADOXICAL MOVEMENT, NO RETRACTIONS. LUNGS: CLEAR, WELL-VENTILATED, SYMMETRIC, NO RALES, NO WHEEZING, NO RHONCHI, NO STRIDOR, GOOD BREATH SOUNDS BILATERALLY. HEART: REGULAR RATE, REGULAR RHYTHM, NO MURMUR, NO GALLOPS. VASCULAR: NO PERIPHERAL EDEMA. ABDOMEN: SOFT, POSITIVE BOWEL SOUNDS, NONDISTENDED, NO GUARDING, NONTENDER, NO REBOUND, NO MASSES NO HEPATOMEGALY, NO SPLENOMEGALY, NO DE LA CRUZ'S SIGN, NO HERNIAS. RECTAL: DEFERRED. GENITAL: DEFERRED. NEUROLOGICAL: NORMAL SPEECH, GROSS MOTOR FUNCTION INTACT, GROSS SENSORY FUNCTION INTACT. MUSCULOSKELETAL: NECK NONTENDER, FULL RANGE OF MOTION, BACK NONTENDER, FULL RANGE OF MOTION. EXTREMITIES: NONTENDER, FULL RANGE OF MOTION. RIGHT HIP PAIN ON PALPATION, LOGROLL NEGATIVE SKIN: COLOR PINK, DRY, NO TURGOR, NO RASH, NO LACERATIONS, NO ABRASIONS, NO CONTUSIONS. LYMPHATICS: DEFERRED. Results Laboratory and Microbiology Labs Reviewed?: Yes EKG/XRAY/US/CT/MRI X-RAY Comment X-RAY OF THE RIGHT HIP-CHRONIC CHANGES MDM MDM: DIFFERENTIAL DIAGNOSIS: OSTEOARTHRITIS OF THE RIGHT HIP, ARTHRITIS OF THE HIP, SCIATICA, RATIONALE: TESTS CONSIDERED AND ORDERED SECONDARY TO SHARED DECISION MAKING INCLUDE: PREVIOUS OUTSIDE RECORDS REVIEWED: OLD ER VISITS. IN HIS IS A AN 89-YEAR-OLD GENTLEMAN COMING IN WITH RIGHT HIP PAIN. HE STATES THAT THE PAIN INITIATED A WEEK AGO AND WAXES AND WANES. ON PHYSICAL EXAM THERE IS NO TENDERNESS TO PALPATION HE STATES THAT THE PAIN IS GONE FOR THE MOMENT. X-RAY DISCLOSE CHRONIC CHANGES OF THE RIGHT HIP. PATIENT WILL BE REFERRED TO COSMETIC ASSEMBLER DR. OLMSTEAD FOR FURTHER EVALUATION. ED Course Orders Procedure Category Date Status Time Hip Unilat 4vw Right RAD 03/21/25 Taken 08:24 Orphenadrine Citrate PHA 03/21/25 Complete (Norflex) 08:30 Triamcinolone Acet PHA 03/21/25 Complete 40mg/Ml 1ml (Kenalog 08:30 Current Medications Medications (Trade) Dose Ordered Sig/Carlos Route PRN Reason Start Time Stop Time Status Last Admin Dose Admin Orphenadrine Citrate (Norflex) 60 mg ONCE ONCE IM 03/21/25 08:30 03/21/25 08:31 DC 03/21/25 08:49 Triamcinolone Acetonide (Kenalog 40) 40 mg ONCE ONCE IM 03/21/25 08:30 03/21/25 08:31 DC 03/21/25 08:49 Vital Signs Date Time Temp Pulse Resp B/P (MAP) Pulse Ox O2 Delivery O2 Flow Rate FiO2 03/21/25 08:55 98.1 81 18 153/75 96 Room Air* 0 21 03/21/25 08:20 98.4 DX & DISP Disposition: Discharge Departure Impression: Primary Impression: Osteoarthritis of right hip Condition: Stable Scripts Lidocaine (Lidocaine Pain Relief) 4 % Adh..patch 1 PATCH TP DAILY for 7 Days, #7 PATCH 0 Refills Prov: GURDEEP BONNER MD 03/21/25 Additional Instructions: FOLLOW-UP WITH PRIMARY CARE PROVIDER IN 1 TO 2 DAYS. TAKE MEDICATIONS DIRECTED HERE IN THE EMERGENCY ROOM. OKAY TO CONTINUE HOME MEDICATIONS UNLESS OTHERWISE DISCUSSED DURING YOUR VISIT IN THE EMERGENCY ROOM TODAY. RETURN TO YOUR NEAREST EMERGENCY ROOM IF SYMPTOMS WORSEN OR IF THERE IS NO IMPROVEMENT. CALL 911 IF YOU NEED IMMEDIATE ASSISTANCE. TAKE TYLENOL [id number] NEEDED AND IF NO CONTRAINDICATIONS ARE PRESENT. INCREASE ORAL HYDRATION. A WOUND CULTURE OR URINE CULTURE WAS ORDERED HERE IN THE EMERGENCY ROOM DEPARTMENT PLEASE FOLLOW-UP WITH PRIMARY CARE PROVIDER AND ADVISE THEM TO GET REPEAT PORTS FROM OUR FACILITY. IF YOU HAD ANY LONA WRAP/SPLINTS THAT WERE APPLIED HERE, PLEASE DO NOT REMOVE THEM UNTIL YOU SEE YOUR PRIMARY CARE OR SPECIALTY. REFERRALS: Referrals: FEDE PIRES MD (PCP) CARMEN OLMSTEAD MD Time of Disposition: 10:10 GURDEEP BONNER MD Mar 21, 2025 10:07
[2025-03-21] MEDS ORDERED: LIDO1ADH71 TP (10:11)
[2025-03-21 10:33] VITALS: BP 150/77; PULSE 78; RESP 18; TEMP 98; O2SAT 95
--- NOTE | 2025-03-21 10:44 | HMCIMG ---
HIP UNILAT 4VW RIGHT REASON: HIP PAIN. COMPARISON: None TECHNIQUE: 3 images of right hip were obtained. FINDINGS: Right hip joint space narrowing is seen. There is no acute displaced fracture or dislocation. Degenerative changes are seen. IMPRESSION: Findings as described above.
== END 2025-03-21 10:44 | disposition home or self-care (01) ==
LOC: EDH 08:16
DX: M16.11 Unilateral primary osteoarthritis, right hip (principal); E78.00 Pure hypercholesterolemia, unspecified; I10 Essential (primary) hypertension; Z79.52 Long term (current) use of systemic steroids; Z79.84 Long term (current) use of oral hypoglycemic drugs; Z79.899 Other long term (current) drug therapy; Z96.651 Presence of right artificial knee joint
CPT/HCPCS: 99284; 73503; 96372 ×2; J3301; J2360

== ENCOUNTER 2025-05-15 10:40 | Emergency (ER) | payer MEDICARE ==
[~2025-05-15] VITALS: Ht 172.7 cm; Wt 111.1 kg
[~2025-05-15 10:40] MED LIST changes: +LIDO1ADH71 TP
[2025-05-15] MEDS ORDERED: SULF1TAB42 PO (11:12)
--- NOTE | 2025-05-15 11:12 | ERN ---
ED Note History of Present Illness Stated Complaint: ABSCESS TO UPPER BACK Chief Complaint: Abscess Time Seen by MD: 10:44 Time Seen by Midlevel: 10:45 Dictation: 89-year-old male who presents to the emergency department with his daughter for evaluation due to report of having the beginning of a small abscess to the right mid back that was noticed yesterday. There is no report of any fever or chills associated with this. At this time, he denies having any pain to the affected area. As per the patient, he is just concerned that this might get out of control and required surgery like he did once to his left upper back. Upon initial evaluation, the patient presents in no acute distress. 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 Home Meds Active Scripts Sulfamethoxazole/Trimethoprim (Bactrim Ds Tablet) 800 Mg-160 Mg Tablet, 1 TAB PO BID for 7 Days, #14 TAB 0 Refills Prov:CARMEN SUGGS 05/15/25 Lidocaine (Lidocaine Pain Relief) 4 % Adh..patch, 1 PATCH TP DAILY for 7 Days, #7 PATCH 0 Refills Prov:GURDEEP BONNER MD 03/21/25 Clindamycin HCl (Clindamycin HCl) 300 Mg Capsule, 300 MG PO BID, #28 CAP 0 Refills Prov:FEDE PIRES MD 03/07/24 Levofloxacin (Levofloxacin) 500 Mg Tablet, 500 MG PO DAILY, #14 TAB Prov:FEDE PIRES MD 03/07/24 Cholecalciferol (Vitamin D3) (D3-5000) 125 Mcg (5000 Unit) Capsule, 125 MCG PO DAILY, #90 CAP Prov:FEDE PIRES MD 03/05/24 Epinephrine (Epinephrine) 0.3 Mg/0.3 Ml Auto.injct, 0.3 MG IJ AD PRN for ALLERGY, #1 CARTRIDGE Prov:FEDE PIRES MD 03/05/24 Linagliptin (Tradjenta) 5 Mg Tablet, 5 MG PO DAILY, #90 TAB Prov:FEDE PIRES MD 03/05/24 Rosuvastatin Calcium (Rosuvastatin Calcium) 5 Mg Tablet, 5 MG PO DAILY, #90 TAB Prov:FEDE PIRES MD 03/05/24 Prednisone (Prednisone) 5 Mg Tablet, 5 MG PO DAILY, #90 TAB Prov:FEDE PIRES MD 03/05/24 Montelukast Sodium (Montelukast Sodium) 10 Mg Tablet, 10 MG PO DAILY, #90 TAB Prov:FEDE PIRES MD 03/05/24 Metformin HCl (Metformin HCl) 500 Mg Tablet, 500 MG PO DAILYBKFST, #90 TAB Prov:FEDE PIRES MD 03/05/24 Hydroxychloroquine Sulfate (Hydroxychloroquine Sulfate) 200 Mg Tablet, 200 MG PO DAILY, #90 TAB Prov:FEDE PIRES MD 03/05/24 Cetirizine HCl (Cetirizine HCl) 10 Mg Tablet, 10 MG PO DAILYDINNER, #90 TAB Prov:FEDE PIRES MD 03/05/24 Tamsulosin HCl (Flomax) 0.4 Mg Cap.er.24h, 0.4 MG PO HS, #[address]SULE.[address] Prov:FEDE PIRES MD 03/05/24 Reported Medications Atenolol (Atenolol) 50 Mg Tablet, 50 MG PO BID, TAB 03/23/19 Past Medical History Past Medical History: Diabetes-Type II, High Cholesterol, Hypertension Additional Past Medical Hx: HARD OF HEARING Surgical History: Other Surgical History Other: RT KNEE , CATS CHRISTOS RN Note Reviewed/Agreed w/PFSH: Yes Review of System Dictation Skin: Skin abscess Initial Vital Sign VS Vital Signs Date Time Temp Pulse Resp B/P (MAP) Pulse Ox O2 Delivery O2 Flow Rate FiO2 05/15/25 10:43 98.8 84 18 164/79 96 Room Air 0 05/15/25 11:43 21 Physical Exam Dictation General: awake, alert, NAD Head/Face: Normocephalic, atraumatic Eyes: PERRL, EOMI ENT: Oral mucosa moist Neck: Trachea midline, supple Cardiovascular: RRR, no edema Respiratory: Symmetrical, non-labored Abdomen: Soft, non-tender, non-distended, no guarding. Skin: Warm, dry, small area of erythema with minimal warmth to the right mid back. MS/Extremity: Pulses equal, no cyanosis, neurovascular intact, FROM Neuro: COAx4, GCS 15, steady gait, Psych: Normal behavior, mood, and affect normal ED Course ED Course Orders Procedure Category Date Status Time Sulfamethox-Tmp Ds PHA 05/15/25 Complete 800/160 Tab (Bactrim 11:30 Current Medications Medications (Trade) Dose Ordered Sig/Carlos Route PRN Reason Start Time Stop Time Status Last Admin Dose Admin Trimethoprim/ Sulfamethoxazole (BactRIM DS) 1 tab ONCE ONCE PO 05/15/25 11:30 05/15/25 11:31 DC 05/15/25 11:41 Vital Signs Date Time Temp Pulse Resp B/P (MAP) Pulse Ox O2 Delivery O2 Flow Rate FiO2 05/15/25 11:43 97.9 81 18 131/81 96 Room Air* 0 21 05/15/25 10:43 98.8 84 18 164/79 96 Room Air 0 Medical Decision Making MDM MDM: Differential diagnosis: Abscess, cellulitis, folliculitis. Rationale: Tests considered and ordered secondary to shared decision making include: Previous outside records reviewed: Old ER visits. Risk of complication and/or morbidity or mortality of patient management: None Medications-Per medication reconciliation Need for hospitalization: Patient does not meet criteria for hospitalization. Need for emergency major/minor surgery: No There are no social concerns with this patient. Prescription drug management Prescriptions will include symptomatic care Patient's prior external medical records from other ER visits were reviewed by me as indicated. Prior testing and results from previous visits were reviewed. Prior tests were taken into account with medical decision making and resource utilization, independent historian/historians were used to obtain complete medical history. I independently interpreted the test that were performed, results were reviewed by me and considered findings on radiology if ordered. Medical management and examination interpretation discussions were had by me with other qualified healthcare professionals as indicated for the patient's care. DX & DISP Disposition: Discharge Departure Impression: Primary Impression: Abscess of back Condition: Stable Scripts Sulfamethoxazole/Trimethoprim (Bactrim Ds Tablet) 800 Mg-160 Mg Tablet 1 TAB PO BID for 7 Days, #14 TAB 0 Refills Prov: CARMEN SUGGS 05/15/25 Referrals: FEDE PIRES MD (PCP) CARMEN SUGGS May 15, 2025 11:12
[2025-05-15] MEDS: sulfaMETHOX-TMP DS 800/160 TAB PO ONE (11:41)
[2025-05-15 11:43] VITALS: BP 131/81; PULSE 81; RESP 18; TEMP 97.8; O2SAT 96
--- NOTE | 2025-05-15 12:03 | NUR ---
DC PATIENT WAS DC'D BY DR Yemi Shen TODAY, I EXPLAINED TO PATIENT TO FOLLOW UP WITH PCP, PROVIDED INFO BASED ON DIAGNOSIS AND EXPLAINED NEW PRESCRIPTIONS AND HOW TO TAKE THEM, I ALSO ANSWERED ANY FURTHER QUESTIONS THE PATIENT HAD, I ALSO PROVIDED PATIENT WARM PAVKS AND A PACK OF 4X4 GAUZE TO TAKE HOME WITH, PATIENT AMBULATED OUT OF ED, NO COMPLICATIONS
== END 2025-05-15 12:01 | disposition home or self-care (01) ==
LOC: EDH 10:40
DX: L02.212 Cutaneous abscess of back [any part, except buttock and flank] (principal); E11.9 Type 2 diabetes mellitus without complications; E78.00 Pure hypercholesterolemia, unspecified; I10 Essential (primary) hypertension; Z79.52 Long term (current) use of systemic steroids; Z79.84 Long term (current) use of oral hypoglycemic drugs; Z79.899 Other long term (current) drug therapy
CPT/HCPCS: 99283

== ENCOUNTER → 2025-06-07 | Outpatient (CLI) | payer MEDICARE ==
[~2025-06-07] MED LIST changes: +SULF1TAB42 PO
--- NOTE | 2025-06-07 18:32 | HMCIMG ---
EXAM: Chest radiograph 1 view HISTORY: Preop COMPARISON: 09/06/2019 FINDINGS: Mild bibasilar atelectasis. No large pleural effusion or pneumothorax. Normal cardiac silhouette. Degenerative changes. IMPRESSION: Mild bibasilar atelectasis. /[place]
== END | disposition home or self-care (01) ==
LOC: RAH 12:34
PROVIDERS: ATTEND Internal Medicine
DX: Z01.818 Encounter for other preprocedural examination (principal); I12.9 Hypertensive chronic kidney disease with stage 1 through stage 4 chronic kidney disease, or unspecified chronic kidney disease; N18.9 Chronic kidney disease, unspecified; J98.11 Atelectasis; M47.814 Spondylosis without myelopathy or radiculopathy, thoracic region
CPT/HCPCS: 71045